=== PATIENT | male | born 1940 | race Caucasian/White ===

== ENCOUNTER 2021-06-03 09:38 | Outpatient (REF) | payer MEDICARE, SELFPAY ==
[2021-06-03 10:09] LABS: Estimated Average Glucose 105 mg/dL; Hemoglobin A1c % 5.3 %
[2021-06-03 10:53] LABS: Anion Gap 14 (12-20); Blood Urea Nitrogen 22 mg/dL (9-16); Calcium 9.7 mg/dL (8.4-10.2); Carbon Dioxide 21 mmol/L (22-29); Chloride 110 mmol/L (96-108); Estimated Glomerular Filt Rate > 60; Glucose Random 94 mg/dL (60-115); Sodium 141 mmol/L (135-145)
== END 2021-06-03 09:39 | disposition home or self-care (01) ==
LOC: HO.10HDL 09:38
PROVIDERS: Visit Provider Internal Medicine
DX: R73.03 Prediabetes (principal)
CPT/HCPCS: 36415; 80048; 83036

== ENCOUNTER 2021-09-12 09:43 | Outpatient (REF) | payer MEDICARE, SELFPAY ==
[2021-09-12 10:08] LABS: MANUAL DIFF FLAG NO
[2021-09-12 10:23] LABS: Basophils Absolute Auto 0.1 X10*3/uL (0.0-0.2); Basophils Percent Auto 0.5 % (0-2); Eosinophils Absolute Auto 0.1 X10*3/uL (0.0-0.4); Eosinophils Percent Auto 1.1 % (0-4); Hematocrit 52.7 % (42.0-52.0); Hemoglobin 17.3 g/dl (14.0-18.0); Imm Gran Abs Auto 0.08 X10*3/uL (0.00-0.03); Imm Gran Pct Auto 0.7 % (0.0-0.4); Lymphocytes Absolute Auto 1.8 X10*3/uL (1.2-4.9); Lymphocytes Percent Auto 16.2 % (20-40); Mean Corpuscular HGB Conc 32.8 g/dl (31.0-36.0); Mean Corpuscular Volume 91.3 fL (80.0-98.0); Mean Platelet Volume 9.8 fL (9.4-12.4); Monocytes Absolute Auto 1.2 X10*3/uL (0.1-1.2); Monocytes Percent Auto 10.6 % (2-11); Neutrophils Percent Auto 70.9 % (45-73); Platelet Count 155 X10*3/uL (160-400); Red Blood Count 5.77 X10*6/uL (4.60-5.80); Red Cell Distribution Width 14.3 % (11.0-16.0); White Blood Count 11.3 X10*3/uL (4.8-10.8)
[2021-09-12 11:02] LABS: B Type Natriuretic Peptide 70 pg/mL (<100)
[2021-09-12 11:04] LABS: Alanine Aminotransferase 26 U/L (0-40); Albumin Level 4.1 g/dL (3.5-5.0); Alkaline Phosphatase 63 U/L (39-117); Anion Gap 14 (12-20); Aspartate Amino Transferase 24 U/L (5-37); Bilirubin Total 0.6 mg/dL (0.0-1.0); Blood Urea Nitrogen 25 mg/dL (9-16); Calcium 9.1 mg/dL (8.4-10.2); Carbon Dioxide 23 mmol/L (22-29); Chloride 108 mmol/L (96-108); Estimated Glomerular Filt Rate > 60; Glucose Random 88 mg/dL (60-115); Potassium 4.1 mmol/L (3.3-5.1); Sodium 141 mmol/L (135-145); Total Protein 6.6 g/dL (6.5-8.0)
[2021-09-12 11:18] LABS: Free T4 (Free Thyroxine) 1.01 ng/dL (0.71-1.85); Thyroid Stimulating Hormone 2.28 uIU/mL (0.32-4.0)
[2021-09-12 11:46] LABS: Vitamin B12 462 pg/mL (200-900)
== END 2021-09-12 09:44 | disposition home or self-care (01) ==
LOC: HO.LAB 09:43
PROVIDERS: PCP Internal Medicine; Visit Provider Internal Medicine
DX: R53.83 Other fatigue (principal); K21.9 Gastro-esophageal reflux disease without esophagitis; R60.0 Localized edema; G47.33 Obstructive sleep apnea (adult) (pediatric); R06.00 Dyspnea, unspecified
CPT/HCPCS: 36415; 80053; 82607; 83880; 84439; 84443; 85025

== ENCOUNTER 2022-09-25 11:40 | Outpatient (REF) | payer MEDICARE, SELFPAY ==
[2022-09-25 13:42] LABS: MANUAL DIFF FLAG NO
[2022-09-25 13:55] LABS: Basophils Absolute Auto 0.1 X10*3/uL (0.0-0.2); Basophils Percent Auto 1.3 % (0-2); Eosinophils Absolute Auto 0.2 X10*3/uL (0.0-0.4); Hematocrit 50.1 % (42.0-52.0); Hemoglobin 16.6 g/dl (14.0-18.0); Imm Gran Abs Auto 0.09 X10*3/uL (0.00-0.03); Lymphocytes Absolute Auto 2.6 X10*3/uL (1.2-4.9); Lymphocytes Percent Auto 28.4 % (20-40); Mean Corpuscular HGB Conc 33.1 g/dl (31.0-36.0); Mean Corpuscular Hemoglobin 29.5 pg (27.0-33.0); Mean Platelet Volume 10.7 fL (9.4-12.4); Monocytes Absolute Auto 1.1 X10*3/uL (0.1-1.2); Monocytes Percent Auto 12.3 % (2-11); Platelet Count 195 X10*3/uL (160-400); Red Blood Count 5.63 X10*6/uL (4.60-5.80); Red Cell Distribution Width 15.1 % (11.0-16.0); White Blood Count 9.1 X10*3/uL (4.8-10.8)
[2022-09-25 14:32] LABS: Alanine Aminotransferase 24 U/L (0-40); Alkaline Phosphatase 68 U/L (39-117); Anion Gap 11 (12-20); Aspartate Amino Transferase 32 U/L (5-37); Bilirubin Total 0.6 mg/dL (0.0-1.0); Blood Urea Nitrogen 20 mg/dL (9-16); Calcium 9.1 mg/dL (8.4-10.2); Carbon Dioxide 26 mmol/L (22-29); Chloride 108 mmol/L (96-108); Cholesterol 164 mg/dL; Estimated Glomerular Filt Rate > 60; Glucose Random 86 mg/dL (60-115); Magnesium 2.2 mg/dL (1.6-2.6); Potassium 4.2 mmol/L (3.3-5.1); Sodium 141 mmol/L (135-145); Total Protein 6.3 g/dL (6.5-8.0)
[2022-09-25 14:50] LABS: Free T4 (Free Thyroxine) 0.95 ng/dL (0.71-1.85); Thyroid Stimulating Hormone 1.82 uIU/mL (0.32-4.0)
[2022-09-25 14:58] LABS: B Type Natriuretic Peptide 45 pg/mL (<100)
== END 2022-09-25 11:41 | disposition home or self-care (01) ==
LOC: HO.10HDL 11:40
PROVIDERS: Visit Provider Internal Medicine
DX: K21.9 Gastro-esophageal reflux disease without esophagitis (principal); G47.33 Obstructive sleep apnea (adult) (pediatric); R00.2 Palpitations; R42 Dizziness and giddiness
CPT/HCPCS: 36415; 80053; 82465; 82550; 83735; 83880; 84439; 84443; 85025

== ENCOUNTER → 2022-09-29 08:49 | Outpatient (REF) | payer MEDICARE, SELFPAY ==
--- NOTE | 2022-09-29 08:57 | HM_ITS ---
Conclusion: 1. Patient was monitored for total period of 3 days 2. Baseline was normal sinus rhythm with average heart rate of 69 beats per minute 3. No significant pauses or bradycardia noted 4. Total of 3804 PVCs accounting for 1.4% of total beats accounting for frequent PVCs 5. Multiple runs of nonsustained VT with longest lasting 5 beats and the fastest at 155 beats per minute 6. Total of 3263 PACs accounting for 1.2% of total beats account for frequent PACs 7. No patient reported events MTDD
== END ==
LOC: HO.CARD 08:49
PROVIDERS: PCP Internal Medicine; Visit Provider Internal Medicine
DX: R00.2 Palpitations (principal); R42 Dizziness and giddiness
CPT/HCPCS: 93242

== ENCOUNTER 2023-03-17 12:32 | Outpatient (REF) | payer MEDICARE, SELFPAY ==
[2023-03-17 13:34] LABS: MANUAL DIFF FLAG NO
[2023-03-17 13:42] LABS: Basophils Absolute Auto 0.1 X10*3/uL (0.0-0.2); Basophils Percent Auto 1.2 % (0-2); Eosinophils Absolute Auto 0.2 X10*3/uL (0.0-0.4); Eosinophils Percent Auto 1.9 % (0-4); Hematocrit 53.3 % (42.0-52.0); Hemoglobin 17.9 g/dl (14.0-18.0); Imm Gran Abs Auto 0.14 X10*3/uL (0.00-0.03); Imm Gran Pct Auto 1.3 % (0.0-0.4); Lymphocytes Absolute Auto 2.8 X10*3/uL (1.2-4.9); Lymphocytes Percent Auto 25.8 % (20-40); Mean Corpuscular HGB Conc 33.6 g/dl (31.0-36.0); Mean Corpuscular Hemoglobin 30.5 pg (27.0-33.0); Mean Corpuscular Volume 90.8 fL (80.0-98.0); Mean Platelet Volume 11.1 fL (9.4-12.4); Monocytes Absolute Auto 1.3 X10*3/uL (0.1-1.2); Monocytes Percent Auto 11.9 % (2-11); Neutrophils Absolute Auto 6.2 x10*3/uL (2.0-8.3); Neutrophils Percent Auto 57.9 % (45-73); Platelet Count 153 X10*3/uL (160-400); Red Blood Count 5.87 X10*6/uL (4.60-5.80); Red Cell Distribution Width 15.1 % (11.0-16.0); White Blood Count 10.7 X10*3/uL (4.8-10.8)
[2023-03-17 14:20] LABS: Prostate Specific Antigen Scr 0.87 ng/mL (<0.05-4.0)
[2023-03-17 14:47] LABS: Free T4 (Free Thyroxine) 0.87 ng/dL (0.71-1.85)
[2023-03-17 14:58] LABS: Alanine Aminotransferase 25 U/L (0-40); Albumin Level 4.3 g/dL (3.5-5.0); Alkaline Phosphatase 67 U/L (39-117); Anion Gap 13 (12-20); Aspartate Amino Transferase 34 U/L (5-37); Bilirubin Total 0.6 mg/dL (0.0-1.0); Blood Urea Nitrogen 20 mg/dL (9-16); Calcium 9.9 mg/dL (8.4-10.2); Carbon Dioxide 22 mmol/L (22-29); Chloride 108 mmol/L (96-108); Estimated Glomerular Filt Rate > 60; Glucose Random 89 mg/dL (60-115); Magnesium 2.3 mg/dL (1.6-2.6); Potassium 4.2 mmol/L (3.3-5.1); Sodium 139 mmol/L (135-145); Total Protein 7.5 g/dL (6.5-8.0)
== END 2023-03-17 12:33 | disposition home or self-care (01) ==
LOC: HO.10HDL 12:32
PROVIDERS: Visit Provider Internal Medicine
DX: R00.2 Palpitations (principal); K21.9 Gastro-esophageal reflux disease without esophagitis; R35.1 Nocturia; Z12.5 Encounter for screening for malignant neoplasm of prostate
CPT/HCPCS: 36415; 80053; 83735; 84153; 84439; 85025

== ENCOUNTER → 2023-03-27 07:55 | Outpatient (BNV) | payer MEDICARE, SELFPAY | PROVIDERS: PCP Internal Medicine; Visit Provider Internal Medicine Cardiovascular Disease | DX: R06.02 Shortness of breath (principal) | CPT/HCPCS: 78452 ==

== ENCOUNTER → 2023-03-27 08:00 | Outpatient (REF) | payer MEDICARE, SELFPAY ==
--- NOTE | ~2023-03-27 | NM_ITS ---
Myocardial perfusion study Indication: Shortness of breath to evaluate for myocardial ischemia Technique: The patient was brought in for a Lexiscan perfusion study on 03/27/2023. Patient performed low-level exercise and was injected 0.4 mg of Lexiscan intravenously. Within a minute of injection, 40 mCi of sestamibi was given intravenously. Images were obtained using the SPECT gamma camera interlaced with the gating device. Images were obtained in supine position. Resting perfusion study was performed on 03/30/2023. Patient was administered 40 mCi of sestamibi intravenously at rest. Images were then obtained in supine position Images obtained with and without CT attenuation. Total DLP on 117 mGy-cm. Images were processed with the software and compared side to side in short axis, horizontal long axis and vertical long axis views. Findings: The stress perfusion study showed showed thinning of the inferior wall and mildly to moderately reduced uptake in the basal inferior wall of the LV myocardium. Remainder of the LV myocardium is normally perfused. Attenuation corrected images show mildly reduced uptake in the apex of the LV myocardium.. The gated study shows normal LV systolic function with calculated LVEF of 58%. LV cavity is normal in size. The gated study shows normal systolic wall thickening and contraction of segments. Resting study shows no significant change in perfusion pattern compared to stress perfusion study. Gating at rest reveals normal systolic wall motion with ejection fraction at 60%. The findings are consistent with likely normal myocardial perfusion. NM/NM ricky perf SPECT rest & str Impression: 1. Myocardial perfusion imaging study shows likely normal myocardial perfusion 2. Gated LVEF is 58% 3. Transient ischemic dilatation not present EKG is nondiagnostic for ischemia
--- NOTE | 2023-03-27 08:03 | CA_ITS ---
Acquisition Time: 2023-03-27 08:20:16 Total Exercise Time: 00:02:00 Test Indications: SOB Medications: Protocol: LEXISCAN Max HR: 100 BPM 72% of Pred: 138 BPM Max BP: 142/078 mmHG Max Work Load: 1.6 METS Referred By: Bg Perdomo Overread By: SHERICE PERDOMO MD
== END ==
LOC: HO.CARD 08:00
PROVIDERS: PCP Internal Medicine; Visit Provider Internal Medicine
DX: R00.2 Palpitations (principal)
CPT/HCPCS: 78452; 93017; A9500; J0280; J2785

== ENCOUNTER → 2023-04-24 09:47 | Outpatient (REF) | payer MEDICARE, SELFPAY ==
--- NOTE | 2023-04-24 09:50 | CA_ITS ---
Transthoracic Echocardiogram Patient (Last, First, Middle): Jaime Irizarry J Gender: Male Date of : 1940 Age: 82 Procedure Date: 04/24/2023 Procedure Type: Transthoracic Echocardiogram Location: OP Height: 175.26 cm Weight: 108.86 kg BSA: 2.23 m2 Heart Rate: bpm Lead Setter: SB Referring MD: Bg Mckee MD Hip Hop Artist: Eldon Rodriguez MD Symptoms: R00.2 Palpitations Study Quality: Adequate ECG Rhythm: Frequent ventricular premature beats Conclusions: - 1. Normal LV ejection fraction 55-60% 2. Moderately dilated left atrium 3. Mild aortic regurgitation 4. Severe mitral calcification with possible mild calcific mitral stenosis 5. Mildly dilated ascending aorta 6. No gross pericardial effusion Findings Procedure Information Contrast agent, definity, is being given per protocol without apparent complications. Left Ventricle Normal left ventricular size, thickness, and systolic function. The visually estimated ejection fraction is between 55-60%. Spectral Doppler is indicative of an impaired relaxation filling pattern. E/E prime ratio is between 8 and 15 consistent with indeterminate filling pressures. Right Ventricle Normal right ventricular cavity size and systolic function. Atria The left atrium is moderately dilated. Interatrial shunt cannot be excluded. The right atrium is likely dilated. Aortic Valve There is mild calcification of the aortic valve. There is no aortic valve stenosis. There is mild aortic valve regurgitation. Mitral Valve There is mild anterior and severe posterior mitral leaflet thickening. The posterior mitral leaflet is immobile. There is severe mitral annular calcification. There is mild mitral valve regurgitation. There is mild mitral valve stenosis. Pulmonic Valve The pulmonic valve was not well visualized. Tricuspid Valve Likely normal tricuspid valve structure and function. Tricuspid regurgitation envelope is inadequate for calculation of right ventricular systolic pressure. Normal right atrial pressure. Great Vessels The pulmonary artery was not well visualized. There is mild dilatation of the ascending aorta measuring 3.80 cm. Venous The inferior vena cava is normal in size and collapses greater than 50% with inspiration. Pericardium/Pleural There is no evidence of pericardial effusion. Prior Study Comparison No prior study available for comparison. Measurements 2D Linear Measurements IVSd: 1.10 0.6-0.9/0.6-1.0 cm LVIDd: 5.80 3.9-5.3/4.2-5.9 cm LVIDd Index: 2.60 2.4-3.2/2.2-3.1 cm/m2 LVIDs: 3.90 2.0-3.6 cm LVPWd: 0.90 0.7-1.1 cm Ao Root: 4.20 2.1-3.5 cm LA Diam: 5.60 2.7-3.8/3.0-4.0 cm LAIDs Index: 2.51 1.5-2.3 cm/m2 LV Mass: 290.62 67-162/88-224 g LV Mass Index: 130.32 43-95/49-115 g/m2 LVOT Diam: 2.80 3.0+(-)1.3 cm 2D Systolic Function EF 4C: 51.90 >55% EF 2C: 64.30 >55% EF BiP: 60.00 >55% Mitral Valve MV VTI: 0.58 MV Pk Jose Alfredo: 1.50 MV Mn Jose Alfredo: 1.08 MV Pk Grad: 9.00 MV Mn Grad: 5.00 MV Pk E: 1.41 MV PK A: 1.47 MV Decel Time: 432.00 E/A: 1.00 E'Medial: 4.68 E/E' Med: 30.10 PHT: 126.00 MVA PHT: 1.75 MVA Continuity: 2.17 Decel [place]: 3.26 Aortic Valve AoV Pk Jose Alfredo: 1.25 AoV Mn Jose Alfredo: 0.94 AoV VTI: 0.26 AoV Pk Grad: 6.00 Aov Mn Grad: 4.00 VASU Cont.VTI: 4.88 AI Pk Jose Alfredo: 3.19 AI [place]: 1.45 LVOT LVOT Pk Jose Alfredo: 0.96 LVOT Mn Jose Alfredo: 0.68 LVOT VTI: 0.21 LVOT Pk Grad: 4.00 LVOT Mn Grad: 2.00 LVOT Diam: 2.80 LVOT Area: 6.16 Diastolic Function MV Pk E: 1.41 MV Pk A: 1.47 E/A: 1.00 E'Medial: 4.68 E/E' Med: 30.10 Right Ventricle TVS' Jose Alfredo: 7.88 Great Vessels Aorta Ao Root-2D: 4.20 2.0-3.7 cm Ao Asc: 3.80 2.1-3.4 cm Ao Arch: 3.50 Pulmonary Valve PV Pk Jose Alfredo: 1.47 Peak PV Grad: 9.00 Updated in Other Vendor System with Status of Final Eldon Rodriguez MD electronically signed on 04/25/2023 10:48:37 AM with status of Final
== END ==
LOC: HO.CARD 09:47
PROVIDERS: PCP Internal Medicine; Visit Provider Internal Medicine
DX: R00.2 Palpitations (principal)
CPT/HCPCS: 93306; Q9957

== ENCOUNTER → 2023-04-24 09:50 | Outpatient (BNV) | payer MEDICARE, SELFPAY | PROVIDERS: PCP Internal Medicine; Visit Provider Internal Medicine Cardiovascular Disease | DX: I34.2 Nonrheumatic mitral (valve) stenosis (principal); I35.1 Nonrheumatic aortic (valve) insufficiency | CPT/HCPCS: 93306 ==

== ENCOUNTER 2023-05-20 08:08 | Outpatient (AMB) | payer MEDICARE, SELFPAY ==
--- NOTE | 2023-05-20 08:19 | MHC.OFFVIS ---
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 Intake Note: NPV w/ EKG [employer] Other Ranks Required: No Accompanied by: Self / Same As Patient Allergies No Known Allergies Allergy (Verified 05/20/23 08:22) Medication List - Last Reconciled 05/20/23 by Donato Mendoza MD cholecalciferol (vitamin D3) 50 mcg PO DAILY fexofenadine (Belén Allergy) 180 mg PO DAILY [id number] mcg (Centrum Silver Men) 1 tab PO DAILY naproxen sodium (Aleve) 220 mg PO BID PRN omeprazole magnesium (Prilosec OTC) 20 mg PO DAILY vitamin B complex (B Complex-Vitamin B12 tablet) 1 tab PO DAILY HPI HPI Comments History of Present Illness Details Jaime is here for consultation regarding abnormal recent Holter. Patient has a history of mitral valve surgery. He states that he underwent mitral valve repair about 20 years ago. History of mitral valve prolapse prior to that leading to the actual surgery. No recent cardiology follow-up. Overall, he states main complaint is shortness of breath. He actually feels more at rest than anything else. When he is actually doing some exercise he feels better. His shortness of breath improved with exercise and hence not clear if it is just deconditioning and lack of activity. Otherwise, no angina. No palpitations. He underwent echocardiogram, stress test as well as Holter and he is here for further evaluation. Otherwise, has obstructive sleep apnea on CPAP. Does not seem to have any major comorbidities. [facility] Medical History (Updated 05/20/23 @ 08:40 by Donato Mendoza MD) ROHIT on CPAP Surgical History (Updated 05/20/23 @ 08:34 by Donato Mendoza MD) Hx of mitral valve repair Family History (Updated 05/20/23 @ 08:26 by Talisha West) Mother No problems noted. Father No problems noted. (Updated 05/20/23 @ 08:26 by Talisha Wset) Alcohol intake: former Patient Tobacco Use Status: Never used Tobacco Review of Systems Const Denies chills, Denies daytime sleepiness, Denies fatigue, Denies fever(s), Denies frequent falls, Denies night sweats, Denies snoring, Denies weakness, Denies weight gain and Denies weight loss Eyes Denies loss of vision ENT Denies dizziness and Denies hearing loss Card Denies chest pain, Denies chest pain with activity, Denies syncope, Denies rapid heart rate, Denies edema, Denies claudication, Denies leg edema, Denies lightheadedness, Denies palpitations, Denies dyspnea, Denies dyspnea on exertion and Denies orthopnea Resp Denies cough, Denies excessive phlegm production, Denies dyspnea, Denies dyspnea on exertion, Denies snoring and Denies wheezing GI Denies abdominal pain, Denies hematochezia, Denies change in bowel habits, Denies change in stool character, Denies heartburn, Denies nausea and Denies vomiting Denies hematuria, Denies dysuria and Denies urinary frequency Musc Denies arthralgias, Denies muscle weakness, Denies numbness and Denies tingling Skin/Breast Denies nail changes and Denies rash Neuro Denies Abnormal speech present, Denies dizziness, Denies syncope, Denies frequent falls, Denies loss of vision, Denies memory loss, Denies numbness, Denies tingling and Denies weakness Psych Denies depression and Denies memory loss Endo Denies fatigue and Denies palpitations Aller/Immun Denies wheezing Physical Exam Vital Signs: Last Vital Signs Pulse 73 05/20/23 08:21 BP 130/70 05/20/23 08:21 BMI result Body Mass Index 36.1 Const General: comfortable and no acute distress Orientation/consciousness: patient oriented x3 HEENT Other: Unremarkable Head: Yes normal to inspection Neck Neck: Yes normal visual inspection Chest Chest palpation & inspection: normal inspection of the chest Resp Auscultation: clear to auscultation bilaterally Cardio Palpation: normal PMI Heart sounds: S1 normal heart sound present, S2 normal heart sound present, no gallops, no murmurs and no rubs GI Palpation (GI): Soft to palpation Back/Spine/Pelvis Other: unremarkable Skin General skin exam: no rashes or lesions noted Neuro General: patient oriented x3 Speech: No Abnormal speech present Extrem General: Yes normal to inspection Psych Mental Status: mental status grossly normal Office Procedures EKG Details: EKG with sinus rhythm at 73/Min; premature supraventricular complexes; premature ventricular complexes; right bundle-branch block and left anterior fascicular [place]. [id number], Complete Assessment & Plan Assessment & Plan (1) Status post mitral valve repair: Code(s): Z98.890 - Other specified postprocedural states (2) PVC (premature ventricular contraction): Code(s): I49.3 - Ventricular premature depolarization (3) NSVT (nonsustained ventricular tachycardia): Code(s): I47.29 - Other ventricular tachycardia (4) ROHIT on CPAP: Code(s): G47.33 - Obstructive sleep apnea (adult) (pediatric) Plan Cardiac studies reviewed. Echocardiogram with LVEF of 55-60%. Reported to have severe mitral calcification but probably that is just the annular ring. Thought to have possible mild stenosis. Mild aortic regurgitation. Moderate left atrial dilatation. Myocardial perfusion imaging study unremarkable. Holter shows underlying sinus rhythm with an average rate of 69/Min. PVCs with a burden of 1.4%. Short runs of SVT, longest 5 beats. Also had frequent PACs. No patient reported events. Findings discussed with patient great detail. With regard to shortness of breath, it seems actually improve with exercise and hence could be just deconditioning. With regard to the PVCs/NSVT, discussed about probably starting some beta-blockers but he states he would rather not take any medications at this time. He does not have any symptoms either and there are no sustained episodes and hence okay to remain without treatment. Otherwise, he can start light exercises and hopefully buildup some endurance. Follow-up in 6 months. Coding Level of Care Code New Pt Level 4 (52244) Diagnoses Status post mitral valve repair Z98.890 PVC (premature ventricular contraction) I49.3 NSVT (nonsustained ventricular tachycardia) I47.29 ROHIT on CPAP G47.33 CPT Codes EKG - CPT: 23989-[id number], Complete ([id number])
[2023-05-20 08:21] VITALS: BP 130/70; PULSE 73; BMI 36.1
== END 2023-05-20 08:43 | disposition home or self-care (01) ==
PROVIDERS: PCP Internal Medicine; Visit Provider Internal Medicine
DX: Z98.890 Other specified postprocedural states (principal); I49.3 Ventricular premature depolarization; I47.29 Other ventricular tachycardia; G47.33 Obstructive sleep apnea (adult) (pediatric)
CPT/HCPCS: 93010; 99204

== ENCOUNTER → 2023-05-20 08:08 | Outpatient (BNVA) | payer MEDICARE, SELFPAY | PROVIDERS: PCP Internal Medicine; Visit Provider Internal Medicine | DX: I45.2 Bifascicular block (principal); I49.3 Ventricular premature depolarization; I49.1 Atrial premature depolarization; G47.33 Obstructive sleep apnea (adult) (pediatric); Z98.890 Other specified postprocedural states; Z99.89 Dependence on other enabling machines and devices | CPT/HCPCS: 93005; 99202 ==

== ENCOUNTER 2023-11-10 08:47 | Outpatient (AMB) | payer MEDICARE, SELFPAY ==
[2023-11-10 08:53] VITALS: BP 140/72; PULSE 70; BMI 35.0
--- NOTE | 2023-11-10 08:53 | MHC.OFFVIS ---
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 He was previously seen in April 2023 because of various cardiac concerns. Patient has a history of mitral valve surgery. He states that he underwent mitral valve repair about 20 years ago. History of mitral valve prolapse prior to that leading to the actual surgery. Was seeing [facility]. Last time, he was reporting shortness of breath when he was resting but improving his exercise but today he states he feels fine. Absolutely no cardiac symptoms. [facility] Medical History (Updated 11/10/23 @ 09:18 by Donato Mendoza MD) Essential hypertension ROHIT on CPAP Surgical History Hx of mitral valve repair Family History Mother No problems noted. Father No problems noted. Social History Alcohol intake: former Patient Tobacco Use Status: Never used Tobacco Review of Systems Const Denies chills, Denies fatigue, Denies fever(s), Denies frequent falls, Denies weakness, Denies weight gain and Denies weight loss ENT Denies dizziness Card Denies chest pain, Denies leg edema, Denies lightheadedness, Denies palpitations, Denies dyspnea and Denies dyspnea on exertion Resp Denies cough, Denies dyspnea and Denies dyspnea on exertion GI Denies hematochezia Musc Denies abnormal gait, Denies muscle weakness, Denies numbness, Denies radiating pain into limb and Denies tingling Neuro Denies Abnormal speech present, Denies abnormal gait, Denies dizziness, Denies frequent falls, Denies numbness, Denies tingling and Denies weakness Endo Denies fatigue and Denies palpitations Physical Exam Vital Signs: Last Vital Signs Pulse 70 11/10/23 08:53 BP 140/72 H 11/10/23 08:53 BMI result Body Mass Index 35.0 Const General: comfortable and no acute distress Orientation/consciousness: patient oriented x3 HEENT Other: Unremarkable Head: Yes normal to inspection Neck Neck: Yes normal visual inspection Chest Chest palpation & inspection: normal inspection of the chest Resp Auscultation: clear to auscultation bilaterally Cardio Palpation: normal PMI Heart sounds: S1 normal heart sound present, S2 normal heart sound present, no gallops, no murmurs and no rubs GI Palpation (GI): Soft to palpation Back/Spine/Pelvis Other: unremarkable Skin General skin exam: no rashes or lesions noted Neuro General: patient oriented x3 Speech: No Abnormal speech present Extrem General: Yes normal to inspection Psych Mental Status: mental status grossly normal Assessment & Plan Assessment & Plan (1) Status post mitral valve repair: Code(s): Z98.890 - Other specified postprocedural states Category: Surgical (2) PVC (premature ventricular contraction): Code(s): I49.3 - Ventricular premature depolarization Category: Medical (3) NSVT (nonsustained ventricular tachycardia): Code(s): I47.29 - Other ventricular tachycardia Category: Medical (4) ROHIT on CPAP: Code(s): G47.33 - Obstructive sleep apnea (adult) (pediatric) Category: Medical (5) Essential hypertension: Code(s): I10 - Essential (primary) hypertension Category: Medical Plan Cardiac studies reviewed. Echocardiogram with LVEF of 55-60%. Reported to have severe mitral calcification, but probably that is just the annular ring. Thought to have possible mild stenosis. Mild aortic regurgitation. Moderate left atrial dilatation. Myocardial perfusion imaging study unremarkable. Holter shows underlying sinus rhythm with an average rate of 69/Min. PVCs with a burden of 1.4%. Short runs of NSVT, longest 5 beats. Also had frequent PACs. No patient reported events. Overall, remote history of mitral valve surgery but no active clinical symptoms or other concerns. He seems to be on a small dose of Losartan for hypertension. No changes with that. No specific management for the ventricular ectopy in the absence of cardiomyopathy or ischemic findings on the stress test. Could consider some beta-blockers in the future. Otherwise, probably another echocardiogram in due course to follow-up on the mitral valve. For the future, he states he would like to switch to [facility] cardiology as he states it is much closer to him. He will contact us with any concerns. Coding Level of Care Code Est Pt Level 4 (94643) Diagnoses Status post mitral valve repair Z98.890 PVC (premature ventricular contraction) I49.3 NSVT (nonsustained ventricular tachycardia) I47.29 ROHIT on CPAP G47.33 Essential hypertension I10
== END 2023-11-10 09:10 | disposition home or self-care (01) ==
PROVIDERS: PCP Internal Medicine; Visit Provider Internal Medicine
DX: Z98.890 Other specified postprocedural states (principal); I49.3 Ventricular premature depolarization; I47.29 Other ventricular tachycardia; G47.33 Obstructive sleep apnea (adult) (pediatric); I10 Essential (primary) hypertension
CPT/HCPCS: 93010; 99214

== ENCOUNTER → 2023-11-10 08:47 | Outpatient (BNVA) | payer MEDICARE, SELFPAY | PROVIDERS: PCP Internal Medicine; Visit Provider Internal Medicine | DX: I49.3 Ventricular premature depolarization (principal); I47.29 Other ventricular tachycardia; I10 Essential (primary) hypertension; G47.33 Obstructive sleep apnea (adult) (pediatric) | CPT/HCPCS: 93005; 99212 ==

== ENCOUNTER 2024-09-12 11:03 | Outpatient (AMB) | payer MEDICARE, SELFPAY ==
[2024-09-12 11:08] VITALS: BP 146/80; PULSE 77; TEMP 36.5; O2SAT 98; BMI 34.7
--- NOTE | 2024-09-12 11:08 | A.OFFPC_ITS ---
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 Accompanied by: Self / Same As Patient Allergies No Known Allergies Allergy (Verified 09/12/24 11:08) Tobacco use date assessed: 09/12/24 Fall risk assessment: No Falls in past year Last assessed Fall Risk: 09/12/24 Dental Screening Dental Screen Date: 09/12/24 Did you have a dental visit in the last 12 months?: No Did you have a dental problem in the last 6 months where you did not have access to dental care?: No [facility] Medical History (Updated 09/12/24 @ 11:34 by Imer Vazquez MD) Achilles tendinitis Essential hypertension ROHIT on CPAP Surgical History Hx of mitral valve repair Family History Mother No problems noted. Father No problems noted. Social History Housing: House Alcohol intake: former Patient Tobacco Use Status: Never used Tobacco service: No Current occupational status: retired Cognitive needs: No Hearing needs: No Vision needs: No Questionnaire PHQ-9 Over the last 2 weeks, how often have you been bothered by any of the following problems? 1. Little interest or pleasure in doing things: not at all 2. Feeling down, depressed, or hopeless: not at all 3. Trouble falling or staying asleep, or sleeping too much: not at all 4. Feeling tired or having little energy: not at all 5. Poor appetite or overeating: not at all 6. Feeling bad about yourself - or that you are a failure or have let yourself or your family down: not at all 7. Trouble concentrating on things, such as reading the newspaper or watching television: not at all 8. Moving or speaking so slowly that other people could have noticed. Or the opposite - being so fidgety or restless that you have been moving around a lot more than usual: not at all 9. Thoughts that you would be better off or of hurting yourself in some way: not at all Total score: 0 Source: Developed by Drs. Israel Burns, Zari Kenyon, Paul Barnett and colleagues, with an educational kristine from [employer] Thrive Questionnaire Date Thrive assessed: 09/12/24 I am a: Patient What is your living situation today?: I have a steady place to live Within the past 12 months, did the food you bought not last and you didn't have the money to get more?: Never true Within the past 12 months, did you worry whether your food would run out before you got money to buy more?: Never true Do you have trouble paying for medicines?: No Do you have trouble getting transportation to medical appointments?: No Do you have trouble paying your heating and electricity bill?: No Do you have trouble taking care of your child, family member or friend?: No Do you have trouble with day-to-day activities such as bathing, preparing meals, shopping, managing finances, etc.?: No Are you currently unemployed and looking for a job?: No Are you interested in more education?: No Please select the resources that you would like help with: None THRIVE Score: 0 AUDIT C Alcohol Use Questionnaire (AUDIT-C) 1. How often do you have a drink containing alcohol?: Never 3. How often do you have six or more drinks on one occasion?: Never Total Score: 0 JOHN-7 AMB Questionnaire JOHN-7 Date JOHN - 7 assessed: 09/12/24 Feeling nervous, anxious, or on edge: 0 = Not at all Not being able to stop or control worryin = Not at all Worrying too much about different things: 0 = Not at all Trouble relaxin = Not at all Being so restless that it is hard to sit still: 0 = Not at all Becoming easily annoyed or irritable: 0 = Not at all Feeling afraid as if something awful might happen: 0 = Not at all Total JOHN-7 score (0-4 normal; 5-9 mild; 10-14 moderate; 15-21 severe): 0 Source: Developed by Zari Thompson Kurt Kroenke and colleagues, with an educational kristine from [employer] ([employer] Physical exam (Primary Care) Vital Signs: Last Vital Signs Temp 97.7 F 09/12/24 11:08 Pulse 77 09/12/24 11:08 BP 146/80 H 09/12/24 11:08 Pulse Ox 98 09/12/24 11:08 Oxygen Delivery Method Room Air 09/12/24 11:08 BMI result Body Mass Index 34.7 Tobacco/Smoking Status: Tobacco use Status Tobacco use date assessed 09/12/24 09/12/24 11:16 Patient Tobacco Use Status Never used Tobacco 09/12/24 11:16 PHQ-9: PHQ-9 Score PHQ-9: Total score 0 09/12/24 11:16 Thrive Assessment: Date of Thrive Assessment Date Thrive assessed 09/12/24 09/12/24 11:16 Coding Level of Care Code New Pt Level 4 (86791) Complex EM visit Add On G2211 Diagnoses Achilles tendinitis M76.60 Essential hypertension I10 Assessment & Plan Assessment & Plan (1) Achilles tendinitis: Code(s): M76.60 - Achilles tendinitis, unspecified leg Category: Medical Plan: Keep right foot elevated. Use Meloxicam as directed. (2) Essential hypertension: Code(s): I10 - Essential (primary) hypertension Category: Medical Plan: BP in range. Losartan reordered. Plan History of Present Illness The patient is an 84-year-old male presenting with discomfort and swelling in his right leg following an incident where a truck door struck his leg. This resulted in tenderness exacerbated by touch, and observable redness and warmth of the area initiated a day post-incident. The patient has a history of previous trauma to the right lower extremity, notably an Achilles tendon rupture repaired surgically four years ago. Post-surgery, he successfully completed rehabilitation. The recent trauma has impaired his walking ability, necessitating the use of a walker. Redness and warmth have persisted since initial onset, and swelling continues to be present. His history of hypertension is managed with losartan, and he habitually uses Aleve for musculoskeletal discomfort. Social History - Resides with , who has dementia and is under his care. - Engaged in physical household activities such as yard work with his son. - Uses ?s walker to assist in ambulation due to recent leg injury. - Has support from a caregiver thrice a week for household and care. Review of Systems - Musculoskeletal: Reports discomfort and swelling in the right leg. Denies injury elsewhere. - Skin: Reports new-onset redness and warmth in the right leg. - Functional: Reports needing a walker due to impaired ambulation. Physical Exam General: Appearance normal, both eyes and all related structures Nutritional Appearance: Well nourished Orientation/consciousness: Patient oriented x3 Limitations: Walking with a limp Head: Normal to inspection Neck: Normal visual inspection Chest: Normal palpation of entire chest wall Respiratory: Normal respiratory effort Neurology: Patient oriented x3 Right leg: Achilles tendon area is inflamed. Minimal discomfirt on inversion, eversion, fle xion or Extension Results Plan The patient has sustained a traumatic injury to the right leg, resulting in discomfort and swelling. Management includes prescribing a stronger anti- inflammatory medication and discontinuing Aleve. He should keep his leg elevated to reduce swelling and be cautious about weight-bearing activities. Continual monitoring for worsening symptoms is advised, necessitating potential further evaluation. Patient was informed and verbally consented to the use of an ambient scribe for clinic note documentation during this visit. Discussion Notes During the visit, I discussed the nature of the current injury and provided reassurance that there is no suspicion of an Achilles rupture. I advised the discontinuation of Aleve in light of a prescription anti-inflammatory and emphasized elevating the leg to mitigate swelling. I advised to minimize physical activities and instructed to keep the leg immobilized as much as possible and seek additional medical attention if symptoms persist or worsen. The patient was counseled on medication adherence and monitoring for adverse symptoms. I agreed to a prescription refill for losartan, as requested. Patient Instructions - Discontinue the use of Aleve and commence prescribed anti-inflammatory medication. - Elevate the right leg while seated or lying down to reduce swelling. - Avoid weight-bearing activities and exertion to prevent further injury. - Use a walker for assistance with mobility if necessary. - Monitor for increasing redness, swelling, or pain, and seek medical attention if worsening. - Prescription refill has been sent for losartan; ensure adherence to the medication regimen. - Avoid unnecessary physical activity for the next few days to allow for recovery. Medications: New meloxicam 15 mg PO DAILY 14 tabs 0RF losartan 25 mg PO DAILY 90 tabs 1RF
== END 2024-09-12 11:34 | disposition home or self-care (01) ==
LOC: HO.HMCHD 11:03
PROVIDERS: PCP Internal Medicine; Visit Provider Internal Medicine
DX: M76.60 Achilles tendinitis, unspecified leg (principal); I10 Essential (primary) hypertension

== ENCOUNTER → 2024-09-12 11:03 | Outpatient (BNVA) | payer MEDICARE, SELFPAY | PROVIDERS: PCP Internal Medicine; Visit Provider Internal Medicine | DX: M76.61 Achilles tendinitis, right leg (principal); I10 Essential (primary) hypertension | CPT/HCPCS: 99202 ==

== ENCOUNTER 2024-11-07 08:46 | Outpatient (AMB) | payer MEDICARE, SELFPAY ==
--- NOTE | 2024-11-07 08:39 | A.OFFPC_ITS ---
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 Accompanied by: Self / Same As Patient Allergies No Known Allergies Allergy (Verified 11/07/24 09:08) Medication List - Last Reconciled 11/07/24 by Imer Vazquez MD cholecalciferol (vitamin D3) 50 mcg PO DAILY fexofenadine (Belén Allergy) 180 mg PO DAILY losartan 50 mg PO DAILY [id number] mcg (Centrum Silver Men) 1 tab PO DAILY omeprazole magnesium (Prilosec OTC) 20 mg PO DAILY vitamin B complex (B Complex-Vitamin B12 tablet) 1 tab PO DAILY Tobacco use date assessed: 11/07/24 Fall risk assessment: No Falls in past year Last assessed Fall Risk: 11/07/24 Dental Screening Dental Screen Date: 11/07/24 Did you have a dental visit in the last 12 months?: Yes Did you have a dental problem in the last 6 months where you did not have access to dental care?: No HPI Telehealth/ Telephone HPI Details 84 Year-old male wishes to discuss his [facility] health via tele health. Since last office visit, patient's right leg and tendinitis worsened. He at to seek admission to [facility] where surgery was done to debride the area. MRI of the leg showed an abscess in the area and a tear in the tender calcaneus. Patient received IV antibiotics through a PICC line. Discharge from the hospital took him to a surgical nursing facility where he completed the antibiotic course and started physical therapy. Currently patient is able to walk with a boot on the right leg. He is able to walk without any aids. Sometimes when he gets tired, he uses a walker at home. No symptoms of pain or fever. [facility], his losartan was increased to 50 mg once a day. [facility] Medical History Achilles tendinitis Essential hypertension ROHIT on CPAP Surgical History History of colonoscopy (~11/22/15) Hx of mitral valve repair Family History Mother No problems noted. Father No problems noted. Social History Housing: House Alcohol intake: former Patient Tobacco Use Status: Never used Tobacco e-Cigarette/Vaping Use: Never Used service: No Current occupational status: retired Cognitive needs: No Hearing needs: No Vision needs: No Questionnaire PHQ-9 Over the last 2 weeks, how often have you been bothered by any of the following problems? 1. Little interest or pleasure in doing things: not at all 2. Feeling down, depressed, or hopeless: not at all 3. Trouble falling or staying asleep, or sleeping too much: not at all 4. Feeling tired or having little energy: not at all 5. Poor appetite or overeating: not at all 6. Feeling bad about yourself - or that you are a failure or have let yourself or your family down: not at all 7. Trouble concentrating on things, such as reading the newspaper or watching television: not at all 8. Moving or speaking so slowly that other people could have noticed. Or the opposite - being so fidgety or restless that you have been moving around a lot more than usual: not at all 9. Thoughts that you would be better off or of hurting yourself in some way: not at all Total score: 0 Source: Developed by Drs. Israel Burns, Zari Kenyon, Paul Barnett and colleagues, with an educational kristine from [employer]. Thrive Questionnaire Date Thrive assessed: 11/07/24 I am a: Patient Within the past 12 months, did the food you bought not last and you didn't have the money to get more?: Never true Within the past 12 months, did you worry whether your food would run out before you got money to buy more?: Never true Do you have trouble paying for medicines?: No Do you have trouble getting transportation to medical appointments?: No Do you have trouble paying your heating and electricity bill?: No Do you have trouble taking care of your child, family member or friend?: No Do you have trouble with day-to-day activities such as bathing, preparing meals, shopping, managing finances, etc.?: No Are you currently unemployed and looking for a job?: No Are you interested in more education?: No THRIVE Score: 0 AUDIT C Alcohol Use Questionnaire (AUDIT-C) 1. How often do you have a drink containing alcohol?: Never 3. How often do you have six or more drinks on one occasion?: Never Total Score: 0 JOHN-7 AMB Questionnaire JOHN-7 Date JOHN - 7 assessed: 11/07/24 Feeling nervous, anxious, or on edge: 0 = Not at all Not being able to stop or control worryin = Not at all Worrying too much about different things: 0 = Not at all Trouble relaxin = Not at all Being so restless that it is hard to sit still: 0 = Not at all Becoming easily annoyed or irritable: 0 = Not at all Feeling afraid as if something awful might happen: 0 = Not at all Total JOHN-7 score (0-4 normal; 5-9 mild; 10-14 moderate; 15-21 severe): 0 Source: Developed by Drs. Israel Burns, Zari Kenyon, Paul Barnett and colleagues, with an educational kristine from [employer]. Physical exam (Primary Care) Tobacco/Smoking Status: Tobacco use Status Tobacco use date assessed 11/07/24 11/07/24 08:44 Patient Tobacco Use Status Never used Tobacco 11/07/24 08:44 e-Cigarette/Vaping Use Never Used 11/07/24 08:44 PHQ-9: PHQ-9 Score PHQ-9: Total score 0 11/07/24 08:48 Thrive Assessment: Date of Thrive Assessment Date Thrive assessed 11/07/24 11/07/24 08:44 Telehealth Telehealth Telehealth Platform: [facility] Location of provider rendering services: practice address Location of patient: address on file Patient Identification confirmed using: Name, : Yes Telehealth method: voice only Patient verbally consented to treatment: Yes Patient verbally consented to billing insurance company: Yes Patient informed of any privacy concerns related to visit: Yes Minutes spent on Phone/Video with Pt.: 15 Coding Level of Care Code Tele Est Pt Level 4 (13407) Complex EM visit Add On G2211 Diagnoses Achilles tendinitis M76.60 Essential hypertension I10 Assessment & Plan Assessment & Plan (1) Achilles tendinitis: Code(s): M76.60 - Achilles tendinitis, unspecified leg Category: Medical Plan: Scheduled for physical therapy at the orthopedic facility. He has an appointment with a provider this week. (2) Essential hypertension: Code(s): I10 - Essential (primary) hypertension Category: Medical Plan: Advised the patient to keep the losartan at 50 mg. Finish the current prescription of 25 mg by taking 2 pills once a day. The new prescription will be for 50 mg. Medications: New losartan 50 mg PO DAILY 90 tabs 1RF
== END 2024-11-07 09:26 | disposition home or self-care (01) ==
LOC: HO.HMCHD 08:47
PROVIDERS: PCP Internal Medicine; Visit Provider Internal Medicine
DX: M76.61 Achilles tendinitis, right leg (principal); I10 Essential (primary) hypertension

== ENCOUNTER → 2024-11-07 08:46 | Outpatient (BNVA) | payer MEDICARE, SELFPAY | PROVIDERS: PCP Internal Medicine; Visit Provider Internal Medicine ==

== ENCOUNTER 2025-04-05 10:59 | Outpatient (AMB) | payer MEDICARE, SELFPAY ==
--- NOTE | 2025-04-05 10:13 | A.OFFPC_ITS ---
Vital Signs 04/05/25 11:11 Height 5 ft 9 in BP 148/74 H Blood Pressure Location Rt brachial Position Sitting Intake Visit Reasons: OV-needs referrals processed-see notes Training And Development Director Required: No Accompanied by: Self / Same As Patient Allergies No Known Allergies Allergy (Verified 04/05/25 10:14) Medication List - Last Reconciled 04/05/25 by Matthias Martínez MD fexofenadine (Belén Allergy) 180 mg PO DAILY losartan 50 mg PO DAILY melatonin 10 mg PO BEDTIME PRN [id number] mcg (Centrum Silver Men) 1 tab PO DAILY omeprazole magnesium (Prilosec OTC) 20 mg PO DAILY vitamin B complex (B Complex-Vitamin B12 tablet) 1 tab PO DAILY Tobacco use date assessed: 11/07/24 Last assessed Fall Risk: 04/05/25 Dental Screening Dental Screen Date: 11/07/24 HPI HPI Comments History of Present Illness Details The patient is an 84-year-old male presenting with a request for two referrals: one for shoulder pain and another for hematuria. The shoulder pain has been a chronic issue, for which the patient receives corticosteroid injections every three to four months. These injections are administered at the [facility] by a ANNABELLE, Andie Du, in orthopedic sports medicine. The condition of the shoulders has been described by the jaren gutierrez as feeling roped or more recouped, and he received his last injection last Thursday. The patient also reports experiencing hematuria, with blood noted in his urine since January. He sought urological care and was evaluated by Dr. Abner Barker at [facility], where he underwent urine testing onsite at a [facility] medical practice located on [facility]. The current management plan for hematuria includes undergoing a CT scan with contrast and a cystoscopy to evaluate the bladder further. The patient has a history of obstructive sleep apnea but mentioned he discontinued using his CPAP device after dona pneumonia in March last year, which made it difficult for him to use. There is concern expressed about the potential cardiovascular risks of not using CPAP. Additionally, there is a history of hypertension for which the patient takes Losartan 50 mg. The dosage was increased from 25 mg following a rehabilitation treatment for an undisclosed condition. The patient's blood pressure today was recorded as hypertensive at 148/74, which he noted to be higher than usual. The patient also briefly mentioned a sensation of clogged ears, although this was not explored in detail. Medical History: - Chronic shoulder pain, managed with co rticosteroid injections - Hematuria since January - Obstructive Sleep Apnea, not currently using CPAP - Hypertension, currently on Losartan 50 mg - Pneumonia in March last year Medications: - Losartan 50 mg for hypertension Diagnostic Results: Labs: - Hematuria confirmed by urine test Tests and Diagnostics: - Planned CT scan with contrast for hematuria - Cystoscopy scheduled for bladder evalu ation Social History: - Discontinued CPAP use due to discomfor t post-pneumonia - Recent blood pressure adjustment [facility] Medical History (Updated 04/05/25 @ 11:26 by Matthias Martínez MD) GERD (gastroesophageal reflux disease) Shoulder pain Hematuria Achilles tendinitis Essential hypertension ROHIT on CPAP Surgical History History of colonoscopy (~11/22/15) Hx of mitral valve repair Family History Mother No problems noted. Father No problems noted. Social History Housing: House Alcohol intake: former Patient Tobacco Use Status: Never used Tobacco e-Cigarette/Vaping Use: Never Used service: No Current occupational status: retired Cognitive needs: No Hearing needs: No Vision needs: No Questionnaire Thrive Questionnaire Date Thrive assessed: 11/07/24 JOHN-7 AMB Questionnaire JOHN-7 Date JOHN - 7 assessed: 11/07/24 Source: Developed by Drs. Israel Burns, Zari Kenyon, Paul Barnett and colleagues, with an educational kristine from [employer]. Review of Systems Const Details: - Musculoskeletal: Reports chronic shoulder pain - Genitourinary: Reports hematuria - Respiratory: Reports obstructive sleep apnea, not currently using CPAP All systems reviewed & are unremarkable except as reviewed in HPI and above Physical exam (Primary Care) Vital Signs: Last Vital Signs BP 148/74 H 04/05/25 11:11 Tobacco/Smoking Status: Tobacco use Status Tobacco use date assessed 11/07/24 04/05/25 10:15 Patient Tobacco Use Status Never used Tobacco 04/05/25 10:15 e-Cigarette/Vaping Use Never Used 04/05/25 10:15 Thrive Assessment: Date of Thrive Assessment Date Thrive assessed 11/07/24 04/05/25 10:15 Const Other: General: +Alert and oriented, Well nourished, No acute distress. Eye: Pupils are equal, round and reactive to light, Intact accommodation, Extraocular movements are intact, Normal conjunctiva, Vision unchanged. HENT: Normocephalic, Atraumatic, Tympanic membranes are clear, Normal hearing, Oral mucosa is moist, No pharyngeal erythema, Ear canals patent. Respiratory: Lungs CTA bilaterally, No wheeze, Respirations are non-labored. Cardiovascular: Regular rate, Regular rhythm, S1 auscultated, S2 auscultated, No murmur, Good pulses equal in all extremities, Normal peripheral perfusion, No edema. Gastrointestinal: Soft, Non-tender, Non-distended, Normal bowel sounds, No organomegaly. Musculoskeletal: Normal range of motion, Normal strength, No tenderness, No swelling, No deformity, Normal gait. Integumentary: Warm, Dry, [place], Intact. Neurologic: Alert, Oriented, Normal sensory, Normal motor function, No focal defects, Cranial Nerves II-XII are grossly intact, Normal deep tendon reflexes. Psychiatric: Cooperative, Appropriate mood & affect, Normal judgment. Coding Level of Care Code Est Pt Level 4 (14087) Complex EM visit Add On G2211 Diagnoses Hematuria, unspecified type R31.9 Hematuria type: unspecified type Essential hypertension I10 Chronic pain of both shoulders M25.511; M25.512; G89.29 Chronicity: chronic Laterality: bilateral ROHIT on CPAP G47.33 Gastroesophageal reflux disease without esophagitis K21.9 Esophagitis presence: without esophagitis Assessment & Plan Assessment & Plan (1) Hematuria: Comment: - Referral to urology for evaluation of hematuria with pending CT scan and cystoscopy as planned by Dr. Abner Barker. - Patient was informed of lab request for UA prior to appointment but did not complete it and had requested a referral without evaluation. A referral was given but also informed to complete UA for proper evaluation. He does endorse that he has a new doctor who he'll be seeing. Code(s): R31.9 - Hematuria, unspecified Category: Medical Qualifiers: Hematuria type: unspecified type Qualified Code(s): R31.9 - Hematuria, unspecified (2) Essential hypertension: Comment: - No medication adjustment at this time as the patient plans to transition care. Advice provided to continue monitoring blood pressure. Code(s): I10 - Essential (primary) hypertension Category: Medical (3) Shoulder pain: Comment: - Referral to orthopedic sports medicine for ongoing management of chronic shoulder pain with corticosteroid injections. Code(s): M25.519 - Pain in unspecified shoulder Category: Medical Qualifiers: Chronicity: chronic Laterality: bilateral Qualified Code(s): M25.511 - Pain in right shoulder; M25.512 - Pain in left shoulder; G89.29 - Other chronic pain (4) ROHIT on CPAP: Comment: - Discussion on the importance of CPAP use to manage obstructive sleep apnea and mitigate cardiovascular risks. Code(s): G47.33 - Obstructive sleep apnea (adult) (pediatric) Category: Medical (5) GERD (gastroesophageal reflux disease): Comment: - Continue Omeprazole 20mg Daily Code(s): K21.9 - Gastro-esophageal reflux disease without esophagitis Category: Medical Qualifiers: Esophagitis presence: without esophagitis Qualified Code(s): K21.9 - Gastro-esophageal reflux disease without esophagitis Plan: Health Maintenance: - Recommended CPAP use to manage sleep apnea and reduce cardiovascular risk - Monitor blood pressure regularly Patient was informed and verbally consented to the use of an ambient scribe for clinic note documentation during this visit. Plan I discussed with the patient the need for urgent follow-up with orthopedics and urology to continue managing his shoulder pain and evaluate his hematuria, respectively. The rationale for using CPAP in managing obstructive sleep apnea and its role in preventing cardiovascular complications was emphasized, though the patient is currently not using it due to past discomfort. I advised him on the hypertensive reading noted today and that his new care team would take over medication management going forward. Follow-up appointments are recommended post -referrals, with additional instructions for monitoring his health. Orders: Referrals Urology Referral R31.9 - Hematuria, unspecified Patient Instructions: - Follow up with scheduled orthopedic and urology appointments. - Use CPAP regularly to manage sleep apnea if possible. - Monitor blood pressure regularly and report any significant changes. - Complete scheduled diagnostic tests for hematuria as instructed by urologist.
[2025-04-05 11:11] VITALS: BP 148/74
== END 2025-04-05 11:27 | disposition home or self-care (01) ==
LOC: HO.HMCHD 11:00
PROVIDERS: PCP Internal Medicine; Visit Provider Student in an Organized Health Care Education/Training Program
DX: R31.9 Hematuria, unspecified (principal); I10 Essential (primary) hypertension; M25.511 Pain in right shoulder; M25.512 Pain in left shoulder; G89.29 Other chronic pain; G47.33 Obstructive sleep apnea (adult) (pediatric); K21.9 Gastro-esophageal reflux disease without esophagitis

== ENCOUNTER → 2025-04-05 10:59 | Outpatient (BNVA) | payer MEDICARE, SELFPAY | PROVIDERS: PCP Internal Medicine; Visit Provider Student in an Organized Health Care Education/Training Program | DX: R31.9 Hematuria, unspecified (principal); I10 Essential (primary) hypertension; M25.511 Pain in right shoulder; M25.512 Pain in left shoulder; G89.29 Other chronic pain; G47.33 Obstructive sleep apnea (adult) (pediatric); K21.9 Gastro-esophageal reflux disease without esophagitis | CPT/HCPCS: 99212 ==

== ENCOUNTER 2025-04-05 11:32 | Outpatient (REF) | payer MEDICARE, SELFPAY ==
[2025-04-05 12:32] LABS: Appearance Urine Clear; Glucose Urine UA Negative (Negative); PH 5.5 (5.0-9.0); Specific Gravity - Urine 1.025 (1.005-1.025); UMIC TRIGGER UA YES
== END 2025-04-05 11:33 | disposition home or self-care (01) ==
LOC: HO.10HDLNP 11:32
PROVIDERS: Visit Provider Student in an Organized Health Care Education/Training Program
DX: R31.9 Hematuria, unspecified (principal)
CPT/HCPCS: 81001